=== PATIENT | male | born 1960 | race Caucasian/White ===

== ENCOUNTER → 2018-12-28 15:55 | Outpatient (CLI) | payer BC, SELFPAY ==
[2018-12-28 17:00] LABS: Hemoglobin A1C 5.7 % (0.0-7.0)
[2018-12-28 17:01] LABS: Alanine Aminotransferase 18 U/L (12-78); Albumin Level 3.7 gm/dL (3.4-5.0); Albumin/Globulin Ratio 1.1 (1.1-1.8); Alkaline Phosphatase 114 U/L (46-116); Anion Gap 12.6 mEq/L (5-15); Aspartate Amino Transferase 10 U/L (15-37); Bilirubin,Total 0.3 mg/dL (0.2-1.0); Blood Urea Nitrogen 6 mg/dL (7-18); Calcium 9.3 mg/dL (8.5-10.1); Carbon Dioxide 28 mmol/L (21.0-32.0); Chloride 105 mmol/L (98-107); Creatinine,Serum 0.86 mg/dL (0.70-1.30); Estimated Glomerular Filt Rate 91 ml/min (>60); GFR (African American) 111 ML/MIN (>60); Globulin 3.3 gm/dl (1.3-3.2); Glucose 132 mg/dL (74-106); Potassium 3.6 mmoL/L (3.5-5.1); Sodium 142 mmol/L (136-145)
[2018-12-28 17:15] LABS: Basophils % 0.5 % (0.1-2.0); Eosinophils # 0.1 K/mm3 (0.0-0.4); Eosinophils % 1.5 % (0.1-12.0); Hematocrit 42.1 % (42.0-52.0); Hemoglobin 14.5 g/dL (14.1-18.0); Lymphocytes # 1.6 K/mm3 (0.7-4.5); Lymphocytes % 22.1 % (10-50); Mean Corpuscular HGB Conc 34.5 g/dL (31.8-35.4); Mean Corpuscular Hemoglobin 31.6 pg (27.0-31.2); Mean Corpuscular Volume 91.6 fl (80-94); Mean Platelet Volume 6.8 fl (7.4-10.4); Monocytes # 0.4 K/mm3 (0.1-1.0); Monocytes % 5.6 % (1.7-9.3); Neutrophils # 5.2 K/mm3 (1.8-7.8); Neutrophils % 70.3 % (37.0-80.0); Platelet Count 247 K/mm3 (142-424); Red Cell Distribution Width 12.6 % (11.5-17.5); White Blood Count 7.4 K/mm3 (4.8-10.8)
[2018-12-30 15:08] LABS: Hep A Ab, IgM Negative (Negative); Hepatitis B Core Antibody IgM Negative (Negative); Hepatitis B Surface Antigen Negative (Negative)
[2018-12-30 16:37] LABS: HIV Screen 4th Generation wRfx Non Reactive (Non Reactive); Hepatitis C Antibody <0.1 s/co ratio (0.0-0.9); Vitamin B12 469 pg/mL (232-1245)
== END ==
PROVIDERS: PCP Internal Medicine Adolescent Medicine; Visit Provider Internal Medicine Adolescent Medicine
DX: B37.0 Candidal stomatitis (principal); R53.83 Other fatigue; R53.81 Other malaise
CPT/HCPCS: 36415; 80053; 80074; 82607; 83036; 85025; 86703; G0432

== ENCOUNTER → 2022-07-04 10:28 | Outpatient (CLI) | payer BC, SELFPAY ==
--- NOTE | 2022-07-04 10:35 | XR_ITS ---
FINAL REPORT TECHNIQUE: Chest PA & Lateral CLINICAL HISTORY: LUNG CRACKLES FINDINGS: 2 views of the chest were performed. The heart size is normal. The mediastinum is within normal limits. There is mild bibasilar atelectasis. There are no pleural effusions. There is no pneumothorax. The bony thorax appears intact. IMPRESSION: Mild bibasilar atelectasis. Reviewed, Interpreted and Dictated by Dionicio Wheat III, MD Transcribed by Roberto Huang Authenticated and [facility]
== END ==
PROVIDERS: PCP Internal Medicine Adolescent Medicine; Visit Provider Internal Medicine Adolescent Medicine
DX: R09.89 Other specified symptoms and signs involving the circulatory and respiratory systems (principal)
CPT/HCPCS: 71046

== ENCOUNTER 2022-08-24 12:03 | Day surgery (SDC) | payer BC, SELFPAY ==
[2022-08-09 13:11] VITALS: BMI 29.0
[2022-08-24] VITALS (7 sets, daily range): BP systolic 96–135; BP diastolic 52–85; PULSE 50–70; RESP 14–18; TEMP 36.2; O2SAT 95–100
--- NOTE | 2022-08-24 13:38 | EXP.ANES.CKL ---
[facility] Disclaimer: The information contained in this section may have been updated after the patient was seen, as this information can be updated by other users. Medical History Environmental allergies Surgical History No significant past surgical history Family History Other No significant family history Social History Smoking Status: Current every day smoker years smoked: 40 alcohol intake: current substance use type: denies use current occupational status: employed Travel in the last 8 weeks: None household members: spouse and children housing: house marital status: caffeine: Yes special nelly needs: No agree to transfusion: No do you feel safe at home: Yes victim of physical abuse: No victim of emotional abuse: No victim of sexual abuse: No would you like helpful sources: No [facility] [place] Anesthesia Checklist Patient Identification Patient Identification: Arm Band and Verbal (Name & ) Structural Data Admitted From: Home Planned Operative Procedure/s: Colonoscopy Consent for Planned Operative Procedure(s) Verified: Yes Verified Documents: Surgical Consent Chart Verification Results Verified: CBC and BMP Airway Assessment C-Spine Mobility Assessed: Yes TMJ Mobility Assessed: Yes Neurological Assessment Level of Consciousness: Awake, Alert and Appropriate Anesthesia Plan Anesthesia Risk discussed: Yes ASA Class: II Anesthesia Type: MAC
--- NOTE | 2022-08-24 14:21 | HMH.SCOPE ---
Procedure: Date: 08/24/22 Patient Date of :: 1960 Procedure Performed:: Colonoscopy Indications:: The patient is a 61 year old who presents for fist time screening colonoscopy Performing Provider:: Yuri Gould MD Referring Provider:: Piero Pike MD Sedation:: See RN records Procedure:: After placing the patient in the left lateral decubitus position, the colonoscopy was gently inserted into the rectum and under direct visualization advanced to the cecum which was identified by transillumination in the right lower quadrant, identification of the ileocecal valve, appendiceal orifice, and cecal strap. Color, texture, mucosa, and anatomy of the colon were carefully examined with the scope. Findings:: Anal canal: normal Rectum: Seven sessile polyps ranging 4-6 mm in size within rectum to rectosigmoid colon. Removed with cold snare polypectomy Sigmoid colon: sessile polyp 5 mm in size. Removed with cold snare polypectomy Descending colon: normal without polyps or inflammatory changes Splenic flexure: normal Transverse colon: normal without polyps or inflammatory changes Hepatic flexure: normal Ascending colon: Two polyps 5 mm and 3 mm in size. Removed with cold snare polypectomy Cecum: normal Terminal ileum: not visualized Impression: Multiple polyps of rectum to distal sigmoid colon Polyps of cecum Recommendations:: Await pathology results Repeat colonoscopy in 2 years Complications:: None Estimated blood obtained (mL): 0
== END 2022-08-24 15:13 | disposition home or self-care (01) ==
PROVIDERS: PCP Internal Medicine Adolescent Medicine; Visit Provider Internal Medicine
PROC: 0DJD8ZZ Inspection of Lower Intestinal Tract, Via Natural or Artificial Opening Endoscopic (ICD-10-PCS; CPT 45378; principal; 2022-08-24 13:00)
DX: Z12.11 Encounter for screening for malignant neoplasm of colon (principal); D12.8 Benign neoplasm of rectum; D12.5 Benign neoplasm of sigmoid colon; Z79.899 Other long term (current) drug therapy
CPT/HCPCS: 45385